=== PATIENT | female | born 1940 | race Caucasian/White ===

== ENCOUNTER → 2017-01-06 | Outpatient (CLI) | payer OTHER | LOC: FIMAGING 08:23 | PROVIDERS: ATTEND Surgery | DX: I65.23 Occlusion and stenosis of bilateral carotid arteries (principal) ==

== ENCOUNTER → 2017-06-30 | Outpatient (CLI) | payer OTHER | LOC: FIMAGING 11:18 | PROVIDERS: ATTEND Family Medicine | DX: Z13.820 Encounter for screening for osteoporosis (principal); M81.0 Age-related osteoporosis without current pathological fracture; M85.80 Other specified disorders of bone density and structure, unspecified site ==

== ENCOUNTER 2017-08-26 08:32 | Inpatient (IN) | payer OTHER ==
--- NOTE | 2017-08-26 08:56 | EDPHY ---
H & P Stated Complaint: increasing anxiety with escalating klonopin use/wants mental health eval Time Seen by Provider: 08/26/17 08:55 HPI/ROS: HPI: This is a 77-year-old female who presents with Chief Complaint: increasing anxiety with escalating klonopin use/wants mental health eval Location: psych Quality:anxiety Duration: Since April Signs and Symptoms:+ suicidal ideation with plan, no homicidal ideation, no hallucinations, + depression, + insomnia, + excessive crying Timing: Worsening Severity: Severe Context: Patient has a history of bipolar disorder, depressive type with severe anxiety and panic attacks presents voluntarily to the emergency room as she is afraid that she is going to end her life. She reports that her depression has been rapidly worsening over the last several months due to family issues. She reports that over the last week her panic attacks have increased to multiple times per day. She is taking Klonopin 3-4 times per day. She is unable to sleep without taking it. She reports that she has been having daily thoughts of taking all of her psychiatric medications at once in order to end her life. She lives by herself and she is afraid to be alone. She drinks 1 glass of wine several times per week. Denies any recreational drug use. Modifying Factors: None Comment: ROS: see HPI Constitutional: No fever, no chills, no weight loss Eyes: No blurred vision Respiratory: No shortness of breath, no cough Cardiovascular: No chest pain Gastrointestinal: No nausea, no vomiting, no diarrhea Genitourinary: No dysuria Extremities: No myalgias Neurologic: No weakness, no numbness Skin: No rashes Hematologic: No bruising, no bleeding MEDICAL/SURGICAL/SOCIAL HISTORY: Medical/Surgical history: chronic back pain, hysterectomy, vitrectomy, dupetryns contracture. Social history: Retired. CONSTITUTIONAL: Tearful, cooperative elderly female, awake and alert, no obvious distress HEENT: Atraumatic and normocephalic, PERRL, EOMI. Tympanic membranes clear. Oropharynx clear, no exudate and moist pink mucosa. Airway patent. No lymphadenopathy. No meningismus. Cardiovascular: Normal S1/S2, regular rate, regular rhythm, without murmur rub or gallop. PULMONARY/CHEST: Symmetrical and nontender. Clear to auscultation bilaterally. Good air movement. No accessory muscle usage. ABDOMEN: Soft, nondistended, nontender, no rebound, no guarding, no peritoneal signs, no masses or organomegaly. No CVAT. EXTREMITIES: 2/2 pulses, strength 5/5, no deformities, no clubbing, no cyanosis or edema. NEUROLOGICAL: no focal neuro deficits. GCS 15. SKIN: Warm and dry, no erythema. no rash. Good capillary refill. PSYCH: Poor eye contact, no flight of ideas, organized thought process, fair insight and judgment, no auditory and visual command hallucinations, + suicidal ideation with a plan, no homicidal ideation, no paranoia Source: Patient, Old records Exam Limitations: No limitations - Personal History Current Tetanus/Diphtheria Vaccine: Yes Tetanus Vaccine Date: within 10yr - Medical/Surgical History Hx Asthma: No Hx Chronic Respiratory Disease: No Hx Diabetes: No Hx Cardiac Disease: No Hx Renal Disease: No Hx Cirrhosis: No Hx Alcoholism: No Hx HIV/AIDS: No Hx Splenectomy or Spleen Trauma: No Other PMH: chronic back pain, hysterectomy, vitrectomy, dupetryns contrac. - Social History Smoking Status: Former smoker Constitutional: Initial Vital Signs Temperature (C) 36.3 C 08/26/17 08:41 Heart Rate 63 08/26/17 08:41 Respiratory Rate 18 08/26/17 08:41 Blood Pressure 154/66 H 08/26/17 08:41 O2 Sat (%) 99 08/26/17 08:41 O2 Delivery Mode Room Air Allergies/Adverse Reactions: lisinopril Allergy (Verified 08/26/17 08:39) Other-Enter Comments all antidepressants Allergy (Uncoded 04/18/16 15:06) Other-Enter Comments Home Medications: Medication Instructions Recorded Alendronate Sodium [Fosamax 70 MG 70 mg PO WHEELER@0700 12/06/14 (*)] Calcium Carbonate [Oyster Shell 500 mg PO BID 12/06/14 Calcium] Cholecalciferol Vit D3 [Vitamin D3 2,000 units PO BID 12/06/14 (*)] Metoprolol Succinate Xr [Toprol Xl 100 mg PO DAILY 12/06/14 100 mg (*)] Multivitamins [Multivitamin (*)] 1 each PO DAILY 12/06/14 Omeprazole 40 mg PO DAILY 12/06/14 QUEtiapine FUMARATE [Seroquel 200 200 mg PO HS 12/06/14 mg (*)] Simvastatin [Zocor] 40 mg PO HS 12/06/14 clonazePAM [Klonopin (*)] 0.5 - 1 mg PO HS PRN 12/13/14 Aspirin [Aspirin 81mg (*)] 81 mg PO HS 04/17/16 Hudgins-3 Fatty Acids [Fish Oil 1000 1,000 mg PO BID 04/17/16 mg (*)] amLODIPine BESYLATE [Norvasc 10 mg 10 mg PO HS 04/17/16 (*)] lamoTRIgine [LamICTAL 100 MG (*)] 150 mg PO BID 04/17/16 Medical Decision Making ED Course/Re-evaluation: 0915: Placed on M1 hold upon arrival due to severe depression and suicidal ideation with a plan. Labs and UDS ordered. No signs of benzodiazepine withdrawal. 1055: Labs reviewed; sodium 130; urine drug screen negative. Medically clear for mental health evaluation. 1319: Informed by mental health that the patient has been accepted at [address] [place] [address]. EMTALA form completed and transport arranged by nursing. This patient was seen under the supervision of my secondary supervising physician. I evaluated care for this patient independently. Discussed this patient with Dr. Garner who did not see the patient. Differential Diagnosis: Differential diagnosis includes but is not limited to bipolar disorder, severe depression, suicidal ideation. - Data Points Laboratory Results: Laboratory Results 08/26/17 09:31 08/26/17 09:31 08/26/17 08/26/17 08/26/17 10:32 09:31 09:31 WBC 5.69 10^3/uL 10^3/uL (3.80-9.50) RBC 4.06 10^6/uL L 10^6/uL (4.18-5.33) Hgb 13.7 g/dL g/dL (12.6-16.3) Hct 39.6 % % (38.0-47.0) MCV 97.5 fL fL (81.5-99.8) MCH 33.7 pg pg (27.9-34.1) MCHC 34.6 g/dL g/dL (32.4-36.7) RDW 12.4 % % (11.5-15.2) Plt Count 250 10^3/uL 10^3/uL (150-400) MPV 8.4 fL L fL (8.7-11.7) Neut % (Auto) 51.2 % % (39.3-74.2) Lymph % (Auto) 35.1 % % (15.0-45.0) [place] % (Auto) 10.5 % % (4.5-13.0) Eos % (Auto) 2.3 % % (0.6-7.6) Baso % (Auto) 0.5 % % (0.3-1.7) Nucleat RBC Rel Count 0.0 % % (0.0-0.2) Absolute Neuts (auto) 2.91 10^3/uL 10^3/uL (1.70-6.50) Absolute Lymphs (auto) 2.00 10^3/uL 10^3/uL (1.00-3.00) Absolute Monos (auto) 0.60 10^3/uL 10^3/uL (0.30-0.80) Absolute Eos (auto) 0.13 10^3/uL 10^3/uL (0.03-0.40) Absolute Basos (auto) 0.03 10^3/uL 10^3/uL (0.02-0.10) Absolute Nucleated RBC 0.00 10^3/uL 10^3/uL (0-0.01) Immature Gran % 0.4 % % (0.0-1.1) Immature Gran # 0.02 10^3/uL 10^3/uL (0.00-0.10) Sodium 130 mEq/L L mEq/L (135-145) Potassium 4.9 mEq/L mEq/L (3.5-5.2) Chloride 94 mEq/L L mEq/L (97-110) Carbon Dioxide 25 mEq/l mEq/l (22-31) Anion Gap 11 mEq/L mEq/L (8-16) BUN 11 mg/dL mg/dL (7-23) Creatinine 0.5 mg/dL L mg/dL (0.6-1.0) Estimated GFR > 60 Glucose 88 mg/dL mg/dL (70-100) Calcium 9.5 mg/dL mg/dL (8.5-10.4) Urine Opiates Screen NEGATIVE (NEGATIVE) Urine Barbiturates NEGATIVE (NEGATIVE) Ur Phencyclidine Scrn NEGATIVE (NEGATIVE) Ur Amphetamine Screen NEGATIVE (NEGATIVE) U Benzodiazepines Scrn NEGATIVE (NEGATIVE) Urine Cocaine Screen NEGATIVE (NEGATIVE) U Marijuana (THC) Screen NEGATIVE (NEGATIVE) Ethyl Alcohol < 10 mg/dL mg/dL (0-10) Departure - Departure Disposition: [facility] IP Clinical Impression: Has access to planned means of suicide Bipolar disorder current episode depressed Qualifiers: Current episode severity: severe Psychotic features: without psychotic features Qualified Code(s): F31.4 - Bipolar disorder, current episode depressed , severe, without psychotic features Condition: Fair
[2017-08-26 09:42] LABS: PLATELET COUNT 250 10^3/uL (150-400)
[2017-08-26] MEDS ORDERED: clonazePAM 0.5 MG TAB PO PRN (17:21)
[2017-08-26] MEDS: OMEGA-3 FATTY ACIDS 1,000 MG CAP PO SCH (20:11)
[2017-08-26] MEDS: CALCIUM CARBONATE 500 MG TAB PO SCH (20:11)
[2017-08-26] MEDS: PANTOPRAZOLE SODIUM 40 MG TAB PO SCH (20:11)
[2017-08-26] MEDS: ATORVASTATIN CALCIUM 40 MG TAB PO SCH (20:11)
[2017-08-26] MEDS: QUEtiapine FUMARATE 200 MG TAB PO SCH (20:12)
[2017-08-26] MEDS: ASPIRIN 81 MG CHEWABLE TAB PO SCH (20:12)
[2017-08-26] MEDS: amLODIPine BESYLATE 5 MG TAB PO SCH (20:12)
[2017-08-26] MEDS: METOPROLOL SUCCINATE XR 100 MG TAB PO SCH (20:12)
[2017-08-26] MEDS: VALSARTAN 40 MG TAB PO SCH (20:12)
[2017-08-26] MEDS: clonazePAM 1 MG TAB PO SCH (20:12)
[2017-08-26] MEDS: CHOLECALCIFEROL VIT D3 2,000 UNITS TAB/CAP PO SCH (20:12)
[2017-08-26] MEDS: lamoTRIgine 100 MG TAB PO SCH (20:12)
[2017-08-27] MEDS ORDERED: BENEFIBER/NUTRISOURCE FIBER PKT 1 EACH PO PRN (06:55)
--- NOTE | 2017-08-27 07:26 | GCON ---
[f rep st] CONSULTATION DATE OF CONSULTATION: 08/27/2017 REASON FOR CONSULTATION: I was asked by Dr. Bennett to see this patient in regard to her medical pro blems. HISTORY OF PRESENT ILLNESS: This is a 77-year-old woman who is admitted to [facility] for magaly cidal ideation. She has a history most significant for vascular disease, status post CEA by Dr. Regis diaz in 2016. She is on appropriate medications including aspirin, as well as Lipitor. She is denying any new neurologic changes right now. She did have an episode in the past of "jumbled words," althou gh she does not think that this was a TIA. Her blood pressure was elevated yesterday, although she d id not take any of her antihypertensives. It is usually not as elevated. She did not have any other symptoms during this time. She has a history of microscopic colitis. She follows with Dr. Garcia. She takes MiraLAX and Fiber-Lax for this. She is currently denying any other acute issues. She does have a mild headache, no runny nose, no chest pain, shortness of breath, nausea, new rash, dysuria, or any neurologic changes. PAST MEDICAL/SURGICAL HISTORY: 1. Hypertension. 2. Hyperlipidemia. 3. Suspected TIA. 4. Right internal carotid artery stenosis, status post CEA by Dr. Lemon in 2016. 5. Chronic hyponatremia. 6. Bipolar disorder. 7. Microscopic colitis. 8. Hysterectomy. 9. TKA. 10. Vitrectomy. 11. Right hand surgery for Dupuytren's contracture. MEDICATIONS: Please see medication reconciliation. ALLERGIES: Lisinopril and all antidepressants. FAMILY HISTORY: Her mother of brain cancer at 38. Her father of CHF at 61. SOCIAL HISTORY: She volunteers at a homeless assisted, at [employer], and [facility]. She is active in the community. REVIEW OF SYSTEMS: A 10-point Review of Systems is conducted and is negative except per HPI. PHYSICAL EXAM: VITAL SIGNS: Blood pressure 203/76, heart rate 74, respiration rate 14, saturating 9 3% on room air. Temperature is 36.6. GENERAL: The patient is a pleasant female who is resting comf ortably, in no acute distress. HEENT: Shows her to be normocephalic, atraumatic. CARDIOVASCULAR: Regular rate and rhythm. No murmurs, rubs, or gallops. PULMONARY: Lungs clear to auscultation bila terally. ABDOMEN: Soft, nontender, nondistended. SKIN: No rash. : No Hendrickson. NEUROLOGIC: Brandee ws her to be alert and oriented x3. Motor and sensation to light touch are intact in both the upper and lower extremities. She has a nonfocal neurologic exam. Cranial nerves are grossly intact. PSYC HIATRIC: Slightly depressed affect. LABS: CBC is relatively unremarkable. Sodium is 130, creatinine 0.5. Tox screen is negative. Alco hol level is negative. DATA: 1. I reviewed her chart including her emergency department note. 2. I reviewed her carotid Doppler study 2017. This was normal. This was post her CEA. 3. I reviewed her brief op note from March of 2016. It notes that there is some carotid plaque. There is no notation of any complications intraoperatively. 4. I reviewed her CT scan from 2012 and is most notable for 3-vessel calcified coronary plaque. IMPRESSION AND PLAN: A 77-year-old female, admitted to [facility]. 1. Vascular disease including carotid stenosis, as well as coronary artery disease: She is on appro priate medications including aspirin, statin, beta-franky. She tells me she is up-to-date on her li pid screening, the last I see her LDL was 76 in December of 2016. This is a reasonable level, we will de flaca to her outpatient providers on further risk factor modification,though she is on a max dose of Li pitor at this time. Would continue these medications. 2. Microscopic colitis: I have added a fiber supplement as well as MiraLAX to her medication list, which she takes at home. 3. Hyponatremia: This is chronic. She is essentially at her baseline. I do not think this needs t o be rechecked at this point. There may be a slight component of syndrome of inappropriate antidiure tic hormone. 4. Hypertension, uncontrolled: This is likely due to her not taking her medications. Please call darshan avina if her blood pressures continue to be elevated. She is on therapy with valsartan, metoprolol, amlo dipine. 5. Headache: We will add low-dose Tylenol p.r.n. Thank you for involving Hospital Medicine in the care of this patient. We will sign off for now. Pl ease re-consult if she continues to have uncontrolled hypertension. /[id number]/MODL
[2017-08-27] MEDS: CALCIUM CARBONATE 500 MG TAB PO SCH ×2 (09:33→20:31)
[2017-08-27] MEDS: lamoTRIgine 100 MG TAB PO SCH ×2 (09:33→17:45)
[2017-08-27] MEDS: METOPROLOL SUCCINATE XR 50 MG TAB PO SCH (09:35)
[2017-08-27] MEDS: amLODIPine BESYLATE 5 MG TAB PO SCH ×2 (09:36→20:30)
[2017-08-27] MEDS: OMEGA-3 FATTY ACIDS 1,000 MG CAP PO SCH ×2 (09:37→20:42)
[2017-08-27] MEDS: CHOLECALCIFEROL VIT D3 2,000 UNITS TAB/CAP PO SCH ×2 (09:37→20:30)
[2017-08-27] MEDS: PANTOPRAZOLE SODIUM 40 MG TAB PO SCH ×2 (09:38→20:42)
[2017-08-27] MEDS: ACETAMINOPHEN 500 MG TAB PO PRN (12:06)
[2017-08-27] MEDS: QUEtiapine FUMARATE 25 MG TAB PO PRN (12:07)
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
[2017-08-27] MEDS: clonazePAM 1 MG TAB PO SCH (20:30)
[2017-08-27] MEDS: ASPIRIN 81 MG CHEWABLE TAB PO SCH (20:30)
[2017-08-27] MEDS: ATORVASTATIN CALCIUM 40 MG TAB PO SCH (20:31)
[2017-08-27] MEDS: VALSARTAN 40 MG TAB PO SCH (20:31)
[2017-08-27] MEDS: QUEtiapine FUMARATE 200 MG TAB PO SCH (20:42)
[2017-08-27] MEDS: METOPROLOL SUCCINATE XR 100 MG TAB PO SCH (20:42)
[2017-08-28] MEDS: PANTOPRAZOLE SODIUM 40 MG TAB PO SCH ×2 (08:19→20:13)
[2017-08-28] MEDS: lamoTRIgine 100 MG TAB PO SCH ×2 (08:57→20:13)
[2017-08-28] MEDS: CHOLECALCIFEROL VIT D3 2,000 UNITS TAB/CAP PO SCH ×2 (08:59→20:13)
[2017-08-28] MEDS: CALCIUM CARBONATE 500 MG TAB PO SCH ×2 (08:59→20:13)
[2017-08-28] MEDS: amLODIPine BESYLATE 5 MG TAB PO SCH ×2 (08:59→20:13)
[2017-08-28] MEDS: METOPROLOL SUCCINATE XR 50 MG TAB PO SCH (08:59)
[2017-08-28] MEDS: OMEGA-3 FATTY ACIDS 1,000 MG CAP PO SCH ×2 (09:00→20:13)
[2017-08-28] MEDS: ACETAMINOPHEN 500 MG TAB PO PRN (14:33)
[2017-08-28] MEDS ORDERED: clonazePAM 0.5 MG TAB PO PRN (16:49)
--- NOTE | 2017-08-28 16:56 | SOAPPROG ---
SOAP Progress Note Assessment/Plan: Assessment: Plan: 08/28/17 16:56 Remains dysphoric, tearful, anxious. Primary focus on ERI issues. Will proceed as above, consider titration of Lamictal after reviewing level. Hope to see patient stay in hospital over the weekend to assess mood, anxiety, sleep and SI. Pt is not willing to do a family meeting as she does not believe it will productive with one sister "who will stonewall" and the other who is actively alcoholic and enmeshed with her alcoholic, dying . Subjective: Pt seen, discussed with staff. In room talking to MHW sobbing. States she is "really sad." Discussed ERI issues at length. Feeling "excluded" by sisters remains the nexus of her sadness. She states, "I'm not suicidal, I would just rather not be here." Working actively in therapies, reading handouts. PRN Seroquel makes her sleepy but did not relieve anxiety. I spoke with her service counselor Dr. Glez who is not in favor of switching from metoprolol to propranolol due the potential for destabilizing her prior to arriving at the proper dose. I discussed with pt the possibility of starting prazosin and she is agreeable to this after review of the risks, benefits and alternatives. I also did a search for negative or dangerous interactions which revealed several studies indicating benefit and noting low SE and toxicity in the combination. Objective: Vital Signs Temp Pulse Resp BP Pulse Ox 36.8 C 64 14 141/65 H 96 08/28/17 06:00 08/28/17 08:59 08/28/17 06:00 08/28/17 08:59 08/28/17 06:00 - Time Spent With Patient Time Spent With Patient: 25" ICD10 Worksheet Patient Problems: Problems Problem Status Onset Bipolar disorder current episode depressed Acute Has access to planned means of suicide Acute Bipolar affective disorder, current episode depression Active Dyslipidemia Active Essential hypertension Active
[2017-08-28] MEDS: ASPIRIN 81 MG CHEWABLE TAB PO SCH (20:12)
[2017-08-28] MEDS: PRAZOSIN HCL 1 MG CAP PO SCH (20:12)
[2017-08-28] MEDS: ATORVASTATIN CALCIUM 40 MG TAB PO SCH (20:12)
[2017-08-28] MEDS: VALSARTAN 40 MG TAB PO SCH (20:12)
[2017-08-28] MEDS: METOPROLOL SUCCINATE XR 100 MG TAB PO SCH (20:13)
[2017-08-28] MEDS: clonazePAM 0.5 MG TAB PO SCH (20:13)
[2017-08-28] MEDS: QUEtiapine FUMARATE 200 MG TAB PO SCH (20:13)
[2017-08-29] MEDS: ACETAMINOPHEN 500 MG TAB PO PRN ×2 (03:45→15:33)
[2017-08-29] MEDS: CHOLECALCIFEROL VIT D3 2,000 UNITS TAB/CAP PO SCH ×2 (08:05→19:44)
[2017-08-29] MEDS: PANTOPRAZOLE SODIUM 40 MG TAB PO SCH ×2 (08:06→19:45)
[2017-08-29] MEDS: OMEGA-3 FATTY ACIDS 1,000 MG CAP PO SCH ×2 (08:06→19:42)
[2017-08-29] MEDS: METOPROLOL SUCCINATE XR 50 MG TAB PO SCH (08:06)
[2017-08-29] MEDS: CALCIUM CARBONATE 500 MG TAB PO SCH ×2 (08:06→19:43)
[2017-08-29] MEDS: lamoTRIgine 100 MG TAB PO SCH ×2 (08:06→19:39)
[2017-08-29] MEDS: amLODIPine BESYLATE 5 MG TAB PO SCH ×2 (08:07→19:47)
[2017-08-29] MEDS: POLYETHYLENE GLYCOL 3350 17 GM PKT PO PRN (08:14)
--- NOTE | 2017-08-29 16:28 | SOAPPROG ---
SOAP Progress Note Assessment/Plan: Assessment: Per Dr. Bennett's notes: 08/28/17 16:56 Remains dysphoric, tearful, anxious. Primary focus on ERI issues. Will proceed as above, consider titration of Lamictal after reviewing level. Hope to see patient stay in hospital over the weekend to assess mood, anxiety, sleep and SI. Pt is not willing to do a family meeting as she does not believe it will productive with one sister "who will stonewall" and the other who is actively alcoholic and enmeshed with her alcoholic, dying . Plan: 08/29/17 16:24 1. Patient was emotional, crying this AM, but presents much calmer and euthymic when MD met with her. 2. Patient requesting fiber supplement and some eye drops. She states she has h/ o corneal abrasions. 3. Lamictal level still pending. 4. Voluntary Subjective: Met with patient, reviewed chart and d/w staff. Patient was crying and emotional earlier this morning. However, when MD met with her she was sitting calmly at table reading a book. She doesn't know whether Prazosin "helped or not " last night b/c she can't remember whether "I was awake or just dreamt I was awake" during the night. Staff reported she slept 6 to 8 hrs. Objective: Vital Signs Temp Pulse Resp BP Pulse Ox 36.6 C 53 L 14 129/56 H 95 08/29/17 06:00 08/29/17 06:00 08/29/17 06:00 08/29/17 06:00 08/29/17 06:00 MSE: Mood: "Fine" Affect: Euthymic, but labile and tearful earlier TP: Linear TC: No SI/HI, no AH/VH Insight/Judgment: Fair - Time Spent With Patient Time Spent With Patient: 20" - Pending Discharge Pending Discharge Within 24 Hours: No Pending Discharge Within 48 Hours: No ICD10 Worksheet Patient Problems: Problems Problem Status Onset Bipolar disorder current episode depressed Acute Has access to planned means of suicide Acute Bipolar affective disorder, current episode depression Active Dyslipidemia Active Essential hypertension Active
[2017-08-29] MEDS ORDERED: CARBOXYMETHYLCELLULOSE 0.5% 0.4 ML DROPERETTE EACHEYE PRN (16:29)
[2017-08-29] MEDS: ATORVASTATIN CALCIUM 40 MG TAB PO SCH (19:40)
[2017-08-29] MEDS: VALSARTAN 40 MG TAB PO SCH (19:44)
[2017-08-29] MEDS: METOPROLOL SUCCINATE XR 100 MG TAB PO SCH (19:46)
[2017-08-29] MEDS: PRAZOSIN HCL 1 MG CAP PO SCH (19:46)
[2017-08-29] MEDS: ASPIRIN 81 MG CHEWABLE TAB PO SCH (19:47)
[2017-08-29] MEDS: QUEtiapine FUMARATE 200 MG TAB PO SCH (19:47)
[2017-08-29] MEDS: clonazePAM 0.5 MG TAB PO SCH (21:03)
[2017-08-30] MEDS: POLYETHYLENE GLYCOL 3350 17 GM PKT PO PRN (08:03)
[2017-08-30] MEDS: CALCIUM CARBONATE 500 MG TAB PO SCH ×2 (08:04→20:36)
[2017-08-30] MEDS: lamoTRIgine 100 MG TAB PO SCH ×2 (08:05→20:34)
[2017-08-30] MEDS: CHOLECALCIFEROL VIT D3 2,000 UNITS TAB/CAP PO SCH ×2 (08:06→20:32)
[2017-08-30] MEDS: METOPROLOL SUCCINATE XR 50 MG TAB PO SCH (08:06)
[2017-08-30] MEDS: OMEGA-3 FATTY ACIDS 1,000 MG CAP PO SCH ×2 (08:06→20:34)
[2017-08-30] MEDS: amLODIPine BESYLATE 5 MG TAB PO SCH ×2 (08:06→20:34)
[2017-08-30] MEDS: ACETAMINOPHEN 500 MG TAB PO PRN (08:10)
--- NOTE | 2017-08-30 14:01 | SOAPPROG ---
SOAP Progress Note Assessment/Plan: Assessment: Per Dr. Bennett's notes: 08/28/17 16:56 Remains dysphoric, tearful, anxious. Primary focus on ERI issues. Will proceed as above, consider titration of Lamictal after reviewing level. Hope to see patient stay in hospital over the weekend to assess mood, anxiety, sleep and SI. Pt is not willing to do a family meeting as she does not believe it will productive with one sister "who will stonewall" and the other who is actively alcoholic and enmeshed with her alcoholic, dying . Plan: 08/29/17 16:24 1. Patient was emotional, crying this AM, but presents much calmer and euthymic when MD met with her. 2. Patient requesting fiber supplement and some eye drops. She states she has h/ o corneal abrasions. 3. Lamictal level still pending. 4. Voluntary 08/30/17 13:59 1. Lamotrigine level is 4.0 2. Patient much more stable mood and euthymic affect today. 3. Continues voluntary Subjective: Met with patient, reviewed chart and d/w staff. Patient is calmly sitting in rocking chair or by the window at table reading a book. She says she is feeling "much better" today, not as emotional, more stable, not as depressed. She denies any thoughts, plan or intent to hurt herself or anyone else. She told staff she had a "great night" and slept "really good" (8 hrs). Objective: Vital Signs Temp Pulse Resp BP Pulse Ox 36.5 C 56 L 16 131/65 H 97 08/30/17 06:00 08/30/17 06:00 08/30/17 06:00 08/30/17 06:00 08/30/17 06:00 MSE: Mood: "Great" Affect: Euthymic TP: Linear TC: No SI/HI, no evidence of psychosis Insight/Judgment: Fair - Time Spent With Patient Time Spent With Patient: 20" - Pending Discharge Pending Discharge Within 24 Hours: No Pending Discharge Within 48 Hours: No ICD10 Worksheet Patient Problems: Problems Problem Status Onset Bipolar disorder current episode depressed Acute Has access to planned means of suicide Acute Bipolar affective disorder, current episode depression Active Dyslipidemia Active Essential hypertension Active
[2017-08-30] MEDS: ASPIRIN 81 MG CHEWABLE TAB PO SCH (20:32)
[2017-08-30] MEDS: ATORVASTATIN CALCIUM 40 MG TAB PO SCH (20:32)
[2017-08-30] MEDS: PRAZOSIN HCL 1 MG CAP PO SCH (20:32)
[2017-08-30] MEDS: QUEtiapine FUMARATE 200 MG TAB PO SCH (20:32)
[2017-08-30] MEDS: PANTOPRAZOLE SODIUM 40 MG TAB PO SCH (20:34)
[2017-08-30] MEDS: METOPROLOL SUCCINATE XR 100 MG TAB PO SCH (20:34)
[2017-08-30] MEDS: clonazePAM 0.5 MG TAB PO SCH (20:36)
[2017-08-30] MEDS: VALSARTAN 40 MG TAB PO SCH (20:39)
[2017-08-31] MEDS: QUEtiapine FUMARATE 25 MG TAB PO PRN ×2 (01:27→14:00)
[2017-08-31] MEDS: ACETAMINOPHEN 500 MG TAB PO PRN ×2 (07:14→14:00)
[2017-08-31] MEDS: amLODIPine BESYLATE 5 MG TAB PO SCH ×2 (09:04→20:09)
[2017-08-31] MEDS: METOPROLOL SUCCINATE XR 50 MG TAB PO SCH (09:04)
[2017-08-31] MEDS: OMEGA-3 FATTY ACIDS 1,000 MG CAP PO SCH ×2 (09:04→20:09)
[2017-08-31] MEDS: PANTOPRAZOLE SODIUM 40 MG TAB PO SCH ×2 (09:04→20:09)
[2017-08-31] MEDS: lamoTRIgine 100 MG TAB PO SCH (09:05)
[2017-08-31] MEDS: CALCIUM CARBONATE 500 MG TAB PO SCH ×2 (09:05→20:09)
[2017-08-31] MEDS: CHOLECALCIFEROL VIT D3 2,000 UNITS TAB/CAP PO SCH ×2 (09:05→20:09)
[2017-08-31] MEDS ORDERED: PRAZOSIN HCL 1 MG CAP PO SCH (11:56)
--- NOTE | 2017-08-31 15:08 | SOAPPROG ---
SOAP Progress Note Assessment/Plan: Assessment: Plan: 08/28/17 16:56 Remains dysphoric, tearful, anxious. Primary focus on ERI issues. Will proceed as above, consider titration of Lamictal after reviewing level. Hope to see patient stay in hospital over the weekend to assess mood, anxiety, sleep and SI. Pt is not willing to do a family meeting as she does not believe it will productive with one sister "who will stonewall" and the other who is actively alcoholic and enmeshed with her alcoholic, dying . 08/31/17 15:07 Mood: Notable improvement. Will titrate lamotrigine to 350mg and prazosin to 2mg, monitor. Subjective: Pt seen, discussed with staff, chart reviewed. She reports "lots of ups and downs" over the weekend. States, "I barfed up a lot of negative emotions and I feel much better." Remains focused on ERI issues, continues to feel abandoned by her sisters. She states she feels better being able to discuss this. Talks about the positive activities and relationships in her life and contrasts these to family interactions. Objective: Vital Signs Temp Pulse Resp BP Pulse Ox 36.6 C 56 L 14 155/71 H 96 08/31/17 06:00 08/31/17 06:00 08/31/17 06:00 08/31/17 06:00 08/31/17 06:00 MSE: Calm, cooperative. Affect is anxious, tearful. Mood is "up and down". TP is linear, goal-directed. TC reveals no psychosis. Denies active SI, though still talks about "being better off ." - Time Spent With Patient Time Spent With Patient: 25" ICD10 Worksheet Patient Problems: Problems Problem Status Onset Bipolar disorder current episode depressed Acute Has access to planned means of suicide Acute Bipolar affective disorder, current episode depression Active Dyslipidemia Active Essential hypertension Active
[2017-08-31] MEDS: ATORVASTATIN CALCIUM 40 MG TAB PO SCH (20:08)
[2017-08-31] MEDS: METOPROLOL SUCCINATE XR 100 MG TAB PO SCH (20:09)
[2017-08-31] MEDS: ASPIRIN 81 MG CHEWABLE TAB PO SCH (20:09)
[2017-08-31] MEDS: clonazePAM 0.5 MG TAB PO SCH (20:09)
[2017-08-31] MEDS: VALSARTAN 40 MG TAB PO SCH (20:09)
[2017-08-31] MEDS: QUEtiapine FUMARATE 200 MG TAB PO SCH (20:09)
[2017-08-31] MEDS ORDERED: lamoTRIgine 100 MG TAB PO SCH (21:00)
[2017-09-01 06:39] VITALS: BP 95/55; PULSE 72; RESP 16; TEMP 97.2; O2SAT 94
[2017-09-01] MEDS: CHOLECALCIFEROL VIT D3 2,000 UNITS TAB/CAP PO SCH (08:13)
[2017-09-01] MEDS: CALCIUM CARBONATE 500 MG TAB PO SCH (08:13)
[2017-09-01] MEDS: PANTOPRAZOLE SODIUM 40 MG TAB PO SCH (08:13)
[2017-09-01] MEDS: METOPROLOL SUCCINATE XR 50 MG TAB PO SCH ×2 (08:14→10:37)
[2017-09-01] MEDS: OMEGA-3 FATTY ACIDS 1,000 MG CAP PO SCH (08:14)
[2017-09-01] MEDS: amLODIPine BESYLATE 5 MG TAB PO SCH (08:15)
[2017-09-01] MEDS ORDERED: lamoTRIgine 100 MG TAB PO SCH (09:00)
[2017-09-01] MEDS: ACETAMINOPHEN 500 MG TAB PO PRN (09:54)
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
== END 2017-09-01 13:16 | disposition home or self-care (01) | DRG 885 ==
LOC: BBEH 14:25
PROVIDERS: ADMIT Psychiatry & Neurology Psychiatry; ATTEND Psychiatry & Neurology Psychiatry
DX: F31.81 Bipolar II disorder (principal); E87.1 Hypo-osmolality and hyponatremia; F41.8 Other specified anxiety disorders; I10 Essential (primary) hypertension; E78.5 Hyperlipidemia, unspecified; Z87.891 Personal history of nicotine dependence; Z80.8 Family history of malignant neoplasm of other organs or systems
CPT/HCPCS: 80175-90; 80305; G0480

== ENCOUNTER → 2018-06-08 | Outpatient (CLI) | payer OTHER | LOC: BHFA 13:30 | PROVIDERS: ATTEND Internal Medicine Cardiovascular Disease | DX: R06.02 Shortness of breath (principal) | CPT/HCPCS: 78452; 93017; A9500; J2785 ==

== ENCOUNTER 2018-07-13 11:22 | Emergency (ER) | payer OTHER ==
--- NOTE | 2018-07-13 12:09 | EDPHY ---
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 She reports that she had "lumbar surgery recently and she is concerned as she has not felt this much pain in quite some time." No history of lung disease. She reports that it hurts to take a deep breath. She prefers to only take Tylenol and or ibuprofen and no narcotics. Modifying Factors: Has not taking any [id number]-[id number]-[id number] pain medications. Comment: ROS: A comprehensive 10 system review of systems is otherwise negative aside from elements mentioned in the history of present illness. MEDICAL/SURGICAL/SOCIAL HISTORY: Medical/surgical history: chronic back pain, hysterectomy, vitrectomy, dupetryns contrac., HTN, hyperlipidemia Social history: Former smoker. Retired. CONSTITUTIONAL: Elderly, talkative polite and cooperative white female, awake and alert, no obvious distress CONSTITUTIONAL: awake and alert, no obvious distress HEENT: Atraumatic and normocephalic. NECK: supple, no midline tenderness, flexion 45 degrees, extension 45 degrees, right and left lateral flexion 45 degrees. No meningismus. Cardiovascular: Normal S1/S2, regular rate, regular rhythm, without murmur rub or gallop. PULMONARY/CHEST: Symmetrical and left mid to lower posterior rib tenderness with palpation, no ecchymosis no crepitus. Clear to auscultation bilaterally but taking shallow breaths. Fair air movement. No accessory muscle usage. ABDOMEN: Soft, nondistended, nontender, no ecchymosis. BACK: Well-healed lumbar incision noted; No midline tenderness, no paraspinous spasm, deep tendon reflexes 2/2, no pain with straight leg raise, No foot drop. Achilles reflexes are equal bilaterally. Able to walk without difficulty. EXTREMITIES: 2/2 pulses, strength 5/5, DIP/PIP/MCP flexion/extension intact with good light touch sensation. no deformities, no clubbing, no cyanosis or edema. NEUROLOGICAL: no focal neuro deficits. GCS 15. Light touch sensation intact. Source: Patient Exam Limitations: No limitations - Personal History Current Tetanus/Diphtheria Vaccine: Yes Current Tetanus Diphtheria and Acellular Pertussis (TDAP): Yes Tetanus Vaccine Date: within 10yr - Medical/Surgical History Hx Asthma: No Hx Chronic Respiratory Disease: No Hx Diabetes: No Hx Cardiac Disease: No Hx Renal Disease: No Hx Cirrhosis: No Hx Alcoholism: No Hx HIV/AIDS: No Hx Splenectomy or Spleen Trauma: No Other PMH: chronic back pain, hysterectomy, vitrectomy, dupetryns contrac., HTN , hyperlipidemia - Social History Smoking Status: Former smoker Constitutional: Initial Vital Signs Temperature (C) 36.3 C 07/13/18 11:30 Heart Rate 64 07/13/18 11:30 Respiratory Rate 16 07/13/18 11:30 Blood Pressure 173/63 H 07/13/18 11:30 O2 Sat (%) 98 07/13/18 11:30 O2 Delivery Mode Room Air Allergies/Adverse Reactions: latex Allergy (Verified 07/13/18 11:27) lisinopril Allergy (Verified 07/13/18 11:27) Other-Enter Comments all antidepressants Allergy (Uncoded 07/13/18 11:27) Other-Enter Comments Home Medications: Medication Instructions Recorded Calcium Carbonate [Oyster Shell 500 mg PO BID 12/06/14 Calcium] Cholecalciferol Vit D3 [Vitamin D3 2,000 units PO BID 12/06/14 (*)] Multivitamins [Multivitamin (*)] 1 each PO DAILY 12/06/14 Aspirin [Aspirin 81mg (*)] 81 mg PO HS 04/17/16 [place]-3 Fatty Acids [Fish Oil 1000 1,000 mg PO BID 04/17/16 mg (*)] Metoprolol Succinate Xr [Toprol Xl 50 mg PO DAILY 08/26/17 50 mg (*)] Omeprazole 20 mg PO BID 08/26/17 QUEtiapine FUMARATE [Seroquel 25 25 mg PO DAILY PRN 08/26/17 mg (*)] amLODIPine BESYLATE [Norvasc 5 mg 5 mg PO BID 08/26/17 (*)] clonazePAM [Klonopin (*)] 0.5 mg PO DAILY PRN 08/26/17 Carboxymethylcellulose 0.5% 1 vivek EACHEYE Q6HRS PRN droperette 09/01/17 [Refresh Plus Drops 0.5%] Guar Gum [Benefiber/Nutrisource 1 each PO BID PRN pkt 09/01/17 Fiber (*)] Polyethylene Glycol 3350 [Miralax 17 gm PO DAILY PRN pkt 09/01/17 17 gm (*)] lamoTRIgine [LamICTAL 100 MG (*)] 200 mg PO HS #60 tab 09/01/17 Flonase Nasal [place] 07/13/18 Glucosamine 07/13/18 Prolia 07/13/18 Rosuvastatin Calcium 07/13/18 oxyCODONE/APAP 5/325 [Percocet 1 - 2 tab PO Q4H PRN #10 tab 07/13/18 5/325 (*)] Medical Decision Making - Diagnostics Imaging Results: Imaging Impressions Chest CT 07/13/18 12:44 Impression: 1. Acute isolated minimally displaced posterior left eighth rib fracture. 2. Clear lungs. No pneumothorax or pulmonary contusion. 3. Mild airways disease unchanged since 6 years prior. 4. No suspicious pulmonary nodule or lymphadenopathy. Findings discussed with Emergency Department physician senior sales assistant, DARIANA Merino on 07/13/2018, 12:15. ED Course/Re-evaluation: Vital signs reviewed and show elevated blood pressure is likely secondary to pain. IV access, i-STAT, CT chest ordered Lidoderm patch applied. 1255: Labs reviewed. H&H stable, creatinine 0.7 1310: Called by radiologist, Dr. Owens, who advised that CT chest shows isolated 8th rib lateral posterior aspect minimally displaced fracture. No T- spine fracture, no pneumothorax. Patient now asking for prescription for Percocet for pain control. No signs of neurovascular compromise/tenting of skin/compartment syndrome/ extremities and joints examined above and below area of concern and are neurovascularly intact. This patient was seen under the supervision of my secondary supervising physician. I evaluated care for this patient with attending. Discussed this patient with Dr. Ortiz who did not see the patient. Differential Diagnosis: Differential diagnosis includes but is not limited to contusion, rib fracture, pneumothorax. - Data Points Laboratory Results: Laboratory Results 07/13/18 12:30 07/13/18 07/13/18 12:31 12:30 POC Hgb 12.9 gm/dL gm/dL (12.6-16.3) POC Hct 38 % % (38-47) POC Sodium 137 mEq/L mEq/L (135-145) Sodium 136 mEq/L mEq/L (135-145) POC Potassium 4.2 mEq/L mEq/L (3.3-5.0) Potassium 4.4 mEq/L mEq/L (3.5-5.2) POC Chloride 101 mEq/L mEq/L (97-110) Chloride 102 mEq/L mEq/L (97-110) Carbon Dioxide 23 mEq/l mEq/l (22-31) Anion Gap 11 mEq/L mEq/L (6-14) POC BUN 12 mg/dL mg/dL (7-23) BUN 14 mg/dL mg/dL (7-23) Creatinine 0.7 mg/dL mg/dL (0.6-1.0) POC Creatinine 0.7 mg/dL mg/dL (0.6-1.0) Estimated GFR > 60 Glucose 102 mg/dL H mg/dL (70-100) POC Glucose 106 mg/dL H mg/dL (70-100) Calcium 10.3 mg/dL mg/dL (8.5-10.4) Medications Given: Discontinued Medications Miscellaneous Medication (Icy Hot Lidocaine/Menthol 4%/1% Patch) 1 patch TD EDNOW ONE Stop: 07/13/18 12:12 Last Admin: 07/13/18 12:16 Dose: 1 patch Point of Care Test Results: Chemistry 07/13/18 12:31 POC Sodium 137 mEq/L mEq/L (135-145) POC Potassium 4.2 mEq/L mEq/L (3.3-5.0) POC Chloride 101 mEq/L mEq/L (97-110) POC BUN 12 mg/dL mg/dL (7-23) POC Creatinine 0.7 mg/dL mg/dL (0.6-1.0) POC Glucose 106 mg/dL H mg/dL (70-100) ISTAT H&H 07/13/18 12:31 POC Hgb 12.9 gm/dL gm/dL (12.6-16.3) POC Hct 38 % % (38-47) Departure - Departure Disposition: Home, Routine, Self-Care Clinical Impression: Left rib fracture Qualifiers: Encounter type: initial encounter Rib fracture type: single rib Fracture type: closed Qualified Code(s): S22.32XA - Fracture of one rib, left side, initial encounter for closed fracture Condition: Good Instructions: Rib Fracture (ED) Additional Instructions: CT scan today shows isolated 8th rib fracture. Take Tylenol 650 mg every 4 hours and/or Ibuprofen 600 mg every 8 hours with food as needed for pain. Use Percocet every 6 hours as needed for severe/break through pain. Do not use Tylenol and Percocet concomitantly. Return at once for any worsening symptoms of shortness of breath or concerns. Referrals: Lakeisha Ohara MD [Primary Care Provider] - 5-7 days, if not improved Prescriptions: oxyCODONE/APAP 5/325 [Percocet 5/325 (*)] 1 - 2 tab PO Q4H PRN #10 tab PRN Reason: Pain, Severe
[2018-07-13] MEDS ORDERED: LIDOCAINE 4%/MENTHOL 1% PATCH TD ONE (12:11)
[2018-07-13] MEDS ORDERED: IOPAMIDOL (ISOVUE 370) 75 ML BTL IV ONE (12:38)
[2018-07-13 13:22] VITALS: BP 152/78
[2018-07-13] MEDS ORDERED: PATCH REMOVAL 1 EA PATCH TD SCH (21:00)
== END 2018-07-13 13:22 | disposition home or self-care (01) ==
DX: S22.32XA Fracture of one rib, left side, initial encounter for closed fracture (principal); I10 Essential (primary) hypertension; E78.5 Hyperlipidemia, unspecified; W50.0XXA Accidental hit or strike by another person, initial encounter; Y92.59 Other trade areas as the place of occurrence of the external cause; Y99.2 Volunteer activity
CPT/HCPCS: 71260; 99285; Q9967; 82435-PO; 82565-PO; 82947-PO; 84132-PO; 84295-PO; 84520-PO; 85014-ER

== ENCOUNTER → 2018-08-17 | Outpatient (CLI) | payer OTHER | LOC: BHFA 15:30 | PROVIDERS: ATTEND Internal Medicine Interventional Cardiology | DX: I25.10 Atherosclerotic heart disease of native coronary artery without angina pectoris (principal); R06.02 Shortness of breath ==

== ENCOUNTER → 2018-09-20 | Outpatient (CLI) | payer OTHER | LOC: FCPNEURO 22:11 | PROVIDERS: ATTEND Internal Medicine Sleep Medicine | DX: G47.33 Obstructive sleep apnea (adult) (pediatric) (principal); J96.11 Chronic respiratory failure with hypoxia ==